=== PATIENT | female | born 1990 | race American Indian/Alaskan Native ===

== ENCOUNTER 2017-02-05 00:32 | Outpatient (CLI) | payer MEDICAID ==
[2017-02-05 00:54] VITALS: BP 121/65
--- NOTE | 2017-02-05 07:52 | Ultrasound Report ---
BIOPHYSICAL PROFILE: 2 - breathing movements 2 - movements 2 - posture and tone 2 - Qualitative amniotic fluid volume 8 - TOTAL SCORE OF POSSIBLE 8 Heart Rate (bpm) 135 Gestation: Single Heart Rate: 135 BPM
== END 2017-02-05 02:29 | disposition home or self-care (01) ==
LOC: TRG 00:32
PROVIDERS: ATTEND Obstetrics & Gynecology Gynecology
DX: O46.93 Antepartum hemorrhage, unspecified, third trimester (principal); O48.0 Post-term pregnancy; O47.1 False labor at or after 37 completed weeks of gestation; O26.893 Other specified pregnancy related conditions, third trimester; R10.30 Lower abdominal pain, unspecified; Z3A.40 40 weeks gestation of pregnancy
CPT/HCPCS: 59025; 76815; 76819

== ENCOUNTER 2017-02-08 07:28 | Inpatient (IN) | payer MEDICAID ==
[2017-02-08] MEDS ORDERED: STADOL IV PRN (08:34)
[2017-02-08] MEDS ORDERED: ZOFRAN IV PRN ×2 (09:02→17:34)
[2017-02-08] MEDS ORDERED: MINERAL OIL PO PRN (09:02)
[2017-02-08] MEDS ORDERED: ePHEDrine SULFATE IV PRN ×2 (09:02→12:09)
[2017-02-08] MEDS ORDERED: BRETHINE SUB-Q PRN (09:02)
[2017-02-08] MEDS ORDERED: XYLOCAINE 2% INFILTRATI ONE (09:02)
[2017-02-08] MEDS ORDERED: BRETHINE IVP PRN (09:02)
--- NOTE | 2017-02-08 09:02 | History and Physical Report ---
History of Present Illness Date of examination: 02/08/17 Chief complaint: Painful contractions History of present illness: 26-year-old at 40+5 weeks presents in active labor, she is a [facility] patient. care complicated by late presentation to care in the second trimester otherwise unremarkable. 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 denies: smoking, alcohol abuse, prescription drug abuse, IV drug use - Obstetrical History Expected Date of Delivery: 02/03/17 Actual Gestation: 40 Week(s) 5 Day(s) : 1 Para: 0 Medications and Allergies Allergies Allergy/AdvReac Type Severity Reaction Status Date / Time latex Allergy Hives Unverified 02/05/17 00:34 Active Meds: Active Medications Butorphanol Tartrate (Stadol) 2 mg IV Q2H PRN PRN Reason: Labor Pain Lactated Ringer's (Lactated Ringers) 1,000 mls @ 125 mls/hr IV DIRECT COLEEN Review of Systems Constitutional: no fever, no chills, no fatigue, no chronic headaches Cardiovascular: no chest pain, no orthopnea, no syncope, no lightheadedness, no shortness of breath, no dyspnea on exertion, no high blood pressure Respiratory: no hemoptysis, no shortness of breath, no dyspnea on exertion Gastrointestinal: abdominal pain (intermittent painful contractions), no nausea , no vomiting, no heartburn, no indigestion Genitourinary: no vaginal bleeding, no vaginal discharge, no leakage of fluid - Vital Signs Vital signs: Vital Signs Pulse BP 91 H 127/67 02/08/17 07:50 02/08/17 07:50 Temp Pulse Resp BP Pulse Ox 98.2 F 85 16 134/80 02/08/17 08:43 02/08/17 08:49 02/08/17 08:43 02/08/17 08:49 - Physical Exam Abdomen: Positive: normal appearance, soft. Negative: guarding Genitourinary (Female): Positive: normal external genitalia Uterus: Positive: enlarged (EFW ~ 3900). Negative: tender Extremities: Positive: normal - Obstetrical FHR: category 1 Cervical Dilatation: 4 (Per RN exam) Results All other labs normal. Assessment and Plan A: 26-year-old at 40+5 weeks presents in active labor -Category 1 tracing P: -Admit -Obtain routine labs -Epidural when necessary -Anticipate normal vaginal delivery - Patient Problems (1) 41 weeks gestation of Current Visit: Yes Status: Acute (2) Active labor at term Current Visit: Yes Status: Acute
[2017-02-08 09:10] LABS: Basophils % (Auto) 0.3 % (0.0-1.8); Eosinophils % (Auto) 0.8 % (0.0-4.3); Hemoglobin 13.5 gm/dl (10.1-14.3); Mean Corpuscular HGB Conc 33 % (30-34); Mean Corpuscular Hemoglobin 29 pg (28-32); Mean Corpuscular Volume 88 fl (79-97); Platelet Count 187 K/mm3 (140-440); Red Blood Count 4.66 M/mm3 (3.65-5.03); Red Cell Distribution Width 15.6 % (13.2-15.2); White Blood Count 10.6 K/mm3 (4.5-11.0)
[2017-02-08] MEDS ORDERED: PITOCin/NS 20 UNIT/1000ML DRIP 20 UNITS/1,000 ML BAG IV SCH ×2 (10:00→18:00)
[2017-02-08] MEDS ORDERED: LACTATED RINGERS 1,000 ML IV SCH (10:00)
[2017-02-08] MEDS ORDERED: PITOCin/NS 30 UNIT/500ML 30 UNITS/500 ML BAG IV SCH ×2 (10:00)
[2017-02-08 10:01] LABS: Hematocrit 41.9 % (30.3-42.9); Hemoglobin 13.9 gm/dl (10.1-14.3); Mean Corpuscular HGB Conc 33 % (30-34); Mean Corpuscular Hemoglobin 29 pg (28-32); Mean Corpuscular Volume 87 fl (79-97); Platelet Count 193 K/mm3 (140-440); Red Blood Count 4.81 M/mm3 (3.65-5.03); Red Cell Distribution Width 15.7 % (13.2-15.2)
[2017-02-08] MEDS: LACTATED RINGERS 1,000 ML IV SCH ×2 (10:35→18:33)
[2017-02-08] MEDS ORDERED: ePHEDrine SULFATE ONE (11:03)
[2017-02-08] MEDS ORDERED: NARCAN 2 MG/2 ML IV PRN (12:09)
--- NOTE | 2017-02-08 12:09 | Anesthesia Consultation ---
Anesthesia Consult and Med Hx Date of service: 02/08/17 - Airway Anesthetic Teeth Evaluation: Good ROM Head & Neck: Adequate Mental/Hyoid Distance: Adequate Mallampati Class: Class II Intubation Access Assessment: Good - Pulmonary Exam CTA: Yes - Cardiac Exam Cardiac Exam: No Murmur - Pre-Operative Health Status ASA Pre-Surgery Classification: ASA2 Proposed Anesthetic Plan: Epidural - Pulmonary Hx Asthma: No COPD: No Hx Pneumonia: No - Cardiovascular System Hx Hypertension: No - Central Nervous System Hx Seizures: No Hx Psychiatric Problems: No - Endocrine Hx Renal Disease: No Hx End Stage Renal Disease: No Hx Hypothyroidism: No Hx Hyperthyroidism: No - Hematic Hx Anemia: No Hx Sickle Cell Disease: No - Other Systems Hx Alcohol Use: No
[2017-02-08] MEDS: fentaNYL-BUPIV 2 MCG/ML-0.125% 200 MCG/100 ML BAG EPIDURAL SCH ×2 (12:46→20:34)
--- NOTE | 2017-02-08 14:31 | Progress Note ---
Assessment and Plan A: 26-year-old at 40+5 weeks presents in active labor -Category 1 tracing at this time P: -Will observe patient for an hour -If no cervical change, will consider proceeding to section. - Patient Problems (1) 41 weeks gestation of Current Visit: Yes Status: Acute (2) Active labor at term Current Visit: Yes Status: Acute Subjective - Subjective Date of service: 02/08/17 Interval history: Patient seen and examined, having latish decelerations when ever Pitocin is started. Pitocin has been discontinued. She is currently 6 cm Patient reports: new complaints, movement normal, contractions, no loss of fluid, no vaginal bleeding Objective - Vital Signs Vital Signs: Vital Signs - 12hr 02/08/17 02/08/17 02/08/17 07:50 08:43 08:49 Temperature 98.2 F Pulse Rate 91 H 85 Pulse Rate [ 91 H From Monitor] Respiratory 16 Rate Blood Pressure 127/67 134/80 Blood Pressure 127/67 [Left Arm] O2 Sat by Pulse Oximetry 02/08/17 02/08/17 02/08/17 09:20 10:04 10:09 Temperature Pulse Rate 108 H 95 H 100 H Pulse Rate [ From Monitor] Respiratory Rate Blood Pressure 115/72 127/61 Blood Pressure [Left Arm] O2 Sat by Pulse 99 99 Oximetry 02/08/17 02/08/17 02/08/17 10:30 11:45 11:49 Temperature 97.1 F L Pulse Rate 96 H 93 H Pulse Rate [ 96 H From Monitor] Respiratory 18 Rate Blood Pressure 118/62 Blood Pressure 118/62 [Left Arm] O2 Sat by Pulse 99 Oximetry 02/08/17 02/08/17 02/08/17 11:53 11:54 11:55 Temperature Pulse Rate 104 H 108 H 110 H Pulse Rate [ From Monitor] Respiratory Rate Blood Pressure 126/64 140/70 Blood Pressure [Left Arm] O2 Sat by Pulse 99 Oximetry 02/08/17 02/08/17 02/08/17 11:57 11:59 12:04 Temperature Pulse Rate 97 H 95 H 108 H Pulse Rate [ From Monitor] Respiratory Rate Blood Pressure 140/61 125/57 121/56 Blood Pressure [Left Arm] O2 Sat by Pulse 98 96 Oximetry 02/08/17 02/08/17 02/08/17 12:05 12:07 12:09 Temperature Pulse Rate 102 H 115 H 112 H Pulse Rate [ From Monitor] Respiratory Rate Blood Pressure 112/53 109/51 Blood Pressure [Left Arm] O2 Sat by Pulse 98 Oximetry 02/08/17 02/08/17 02/08/17 12:10 12:11 12:12 Temperature Pulse Rate 111 H 99 H 107 H Pulse Rate [ From Monitor] Respiratory Rate Blood Pressure 101/48 118/51 Blood Pressure [Left Arm] O2 Sat by Pulse 86 Oximetry 02/08/17 02/08/17 02/08/17 12:14 12:15 12:17 Temperature Pulse Rate 112 H 93 H 102 H Pulse Rate [ From Monitor] Respiratory Rate Blood Pressure 119/60 123/55 124/60 Blood Pressure [Left Arm] O2 Sat by Pulse 98 Oximetry 02/08/17 02/08/17 02/08/17 12:19 12:24 12:29 Temperature Pulse Rate 94 H 118 H 90 Pulse Rate [ From Monitor] Respiratory Rate Blood Pressure 120/56 Blood Pressure [Left Arm] O2 Sat by Pulse 98 98 98 Oximetry 02/08/17 02/08/17 02/08/17 12:31 12:34 12:39 Temperature Pulse Rate 96 H 96 H 89 Pulse Rate [ From Monitor] Respiratory Rate Blood Pressure 97/55 Blood Pressure [Left Arm] O2 Sat by Pulse 97 99 Oximetry 02/08/17 02/08/17 02/08/17 12:42 12:44 12:49 Temperature Pulse Rate 81 102 H 89 Pulse Rate [ From Monitor] Respiratory Rate Blood Pressure 123/58 Blood Pressure [Left Arm] O2 Sat by Pulse 99 98 Oximetry 02/08/17 02/08/17 02/08/17 12:51 12:54 12:59 Temperature Pulse Rate 85 89 88 Pulse Rate [ From Monitor] Respiratory Rate Blood Pressure 123/57 Blood Pressure [Left Arm] O2 Sat by Pulse 99 98 Oximetry 02/08/17 02/08/17 02/08/17 13:00 13:01 13:04 Temperature 97.7 F Pulse Rate 81 93 H Pulse Rate [ 81 From Monitor] Respiratory 18 Rate Blood Pressure 117/57 Blood Pressure 117/57 [Left Arm] O2 Sat by Pulse 98 Oximetry 02/08/17 02/08/17 02/08/17 13:09 13:14 13:19 Temperature Pulse Rate 82 85 87 Pulse Rate [ From Monitor] Respiratory Rate Blood Pressure Blood Pressure [Left Arm] O2 Sat by Pulse 98 99 98 Oximetry 02/08/17 02/08/17 02/08/17 13:24 13:29 13:30 Temperature Pulse Rate 89 86 77 Pulse Rate [ From Monitor] Respiratory Rate Blood Pressure 116/56 Blood Pressure [Left Arm] O2 Sat by Pulse 97 97 Oximetry 02/08/17 02/08/17 02/08/17 13:34 13:39 13:40 Temperature Pulse Rate 76 84 81 Pulse Rate [ From Monitor] Respiratory Rate Blood Pressure 108/54 Blood Pressure [Left Arm] O2 Sat by Pulse 98 99 Oximetry 02/08/17 02/08/17 02/08/17 13:44 13:49 13:51 Temperature Pulse Rate 73 74 79 Pulse Rate [ From Monitor] Respiratory Rate Blood Pressure 104/66 Blood Pressure [Left Arm] O2 Sat by Pulse 98 99 Oximetry 02/08/17 02/08/17 02/08/17 13:54 13:59 14:02 Temperature Pulse Rate 76 75 79 Pulse Rate [ From Monitor] Respiratory Rate Blood Pressure 99/51 Blood Pressure [Left Arm] O2 Sat by Pulse 98 95 Oximetry 02/08/17 02/08/17 02/08/17 14:04 14:09 14:11 Temperature Pulse Rate 77 94 H 82 Pulse Rate [ From Monitor] Respiratory Rate Blood Pressure 108/56 Blood Pressure [Left Arm] O2 Sat by Pulse 98 97 Oximetry 02/08/17 02/08/17 02/08/17 14:14 14:19 14:22 Temperature Pulse Rate 77 77 90 Pulse Rate [ From Monitor] Respiratory Rate Blood Pressure 114/53 Blood Pressure [Left Arm] O2 Sat by Pulse 94 100 Oximetry - Exam FHR: category 1 Cervical Dilatation: 6 - Labs Labs: Abnormal Labs 02/08/17 02/08/17 09:02 09:45 RDW 15.6 H 15.7 H Seg Neutrophils % 75.0 H Seg Neutrophils # 7.9 H Laboratory Results - last 24 hr 02/08/17 02/08/17 02/08/17 08:15 09:02 09:45 WBC 10.6 11.0 RBC 4.66 4.81 Hgb 13.5 13.9 Hct 41.0 41.9 MCV 88 87 MCH 29 29 MCHC 33 33 RDW 15.6 H 15.7 H Plt Count 187 193 Lymph % (Auto) 16.8 [place] % (Auto) 7.1 Eos % (Auto) 0.8 Baso % (Auto) 0.3 Lymph # 1.8 [place] # 0.8 Eos # 0.1 Baso # 0.0 Seg Neutrophils % 75.0 H Seg Neutrophils # 7.9 H Blood Type B POSITIVE Antibody Screen TNR RONY Antibody Screen Negative
[2017-02-08] MEDS ORDERED: REGLAN IV ONE (15:32)
[2017-02-08] MEDS ORDERED: BICITRA PO ONE (15:32)
[2017-02-08] MEDS ORDERED: PEPCID IV ONE (15:32)
--- NOTE | 2017-02-08 15:33 | Event Note ---
Date: 02/08/17 Patient with no cervical change in ~ 1 hour. Currently category 1 tracing. Discussed options with the patient and her family, discussed starting Pitocin or proceeding with primary . She wants to proceed with primary C- section. We then reviewed the risks of surgery including injury to the surrounding organs and tissues, risk of bleeding, infection. All her questions were answered and we'll proceed as soon as OR is available
[2017-02-08] MEDS ORDERED: ANCEF/NS 1 GM/50 ML 1 GM/50 ML BAG IV NR (16:00)
[2017-02-08] MEDS ORDERED: ANCEF/STERILE WATER 2 GM/20 ML 2 GM/20 ML SYRINGE IV NR (16:00)
[2017-02-08] MEDS ORDERED: MORPHINE ONE ×2 (16:14)
[2017-02-08] MEDS ORDERED: XYLOCAINE MPF 2% ONE ×4 (16:25)
[2017-02-08] MEDS ORDERED: TORADOL ONE (16:25)
[2017-02-08] MEDS ORDERED: VERSED ONE (17:09)
--- NOTE | 2017-02-08 17:25 | Operative Report ---
Operative Report Operative Report: DATE: 02/08/2017 PREOPERATIVE DIAGNOSIS: 26-year-old at 40+5 weeks, category 2 tracing, arrest of dilation, suspected macrosomia, maternal request, maternal obesity POSTOP DIAGNOSIS: As above NAME OF PROCEDURE: Primary low transverse section SURGEON: JOHN JOHANSEN MD SHORTAGE WORKER: [] ANESTHESIA: Epidural EBL: 1000 mL PATHOLOGY SPECIMEN: None URINE OUTPUT: 100 mL FINDINGS: Female in cephalic presentation, time of was 16:33, with significant thickening of the shoulders and cheeks resembling a diabetic profile, Apgars 9 and 9, infant weight was 8 lbs. 2 oz. or 3679 g, normal uterus and tubes bilaterally, substantial subcutaneous tissue DESCRIPTION OF PROCEDURE: After informed consent, patient was taken to the operating room where she was prepped and draped in a sterile fashion. Pfannestial incision was performed 2 cm above the pubic symphysis. This was then carried down to the underlying rectus fascia which was scored in the midline. The fascial incision was extended laterally with the use of Holley scissors, anterior leaf was then grasped with Britany's elevated dissected sharply and bluntly off the underlying rectus. In a similar fashion the inferior leaf was grasped elevated dissected sharply and bluntly off the underlying rectus. The rectus was in the midline and the peritoneal cavity was entered without difficulty. After good visualization of the bladder the peritoneal layer was extended up and down; bladder blade was placed in the patient's pelvic cavity, bladder flap was created without difficulty. A hysterotomy incision was then performed with clear amniotic fluid noted. in cephalic presentation was delivered without difficulty in the usual manner; cord was clamped cut and infant was handed over to waiting NICU staff. The placenta was then delivered intact, the uterus was then exteriorized cleared of all clots and debris. Her hysterotomy incision was then closed in a running locked fashion with 0 Vicryl on a CTX; using the same suture were able to imbricate the initial layer. The uterus was then returned to the patient's pelvic cavity; the peritoneal edges were grasped with hemostats and Jenniffer's; irrigation was used to clear the gutters of all clots and debris. Tisseel hemostatic agent was applied copiously over the hysterotomy incision. The bladder flap was then closed in a running fashion with 3-0 Vicryl. Interceed was placed in the patient's pelvic cavity as a means to prevent future adhesions. The peritoneal layer was closed in a running fashion with 0 Vicryl; the rectus was reapproximated with a single [id number] stitch. The fascia was then closed in a running fashion with 0 Vicryl; the subcutaneous layer was reapproximated with a single yxcthy-[id number] stitch. The skin was then closed in a subcuticular manner with 4-0 Monocryl. She tolerated the procedure well lap and instrument counts were correct 2, she did receive 3 grams of Ancef prior to the procedure. She is transferred to PACU in stable condition.
[2017-02-08] MEDS ORDERED: TUCKS PAD TP PRN (17:26)
[2017-02-08] MEDS ORDERED: TYLENOL PO PRN (17:26)
[2017-02-08] MEDS ORDERED: NARCAN 0.4 MG/1 ML IV PRN ×2 (17:26→17:34)
[2017-02-08] MEDS ORDERED: LANSINOH TP PRN (17:26)
[2017-02-08] MEDS ORDERED: NORCO 5/325 PO PRN (17:26)
[2017-02-08] MEDS ORDERED: TORADOL IV PRN (17:26)
[2017-02-08] MEDS ORDERED: MYLICON PO PRN (17:26)
[2017-02-08] MEDS ORDERED: SENOKOT PO PRN (17:26)
[2017-02-08] MEDS ORDERED: ANUCORT-HC PR PRN (17:26)
[2017-02-08] MEDS ORDERED: MILK OF MAGNESIA PO PRN (17:26)
[2017-02-08] MEDS ORDERED: PHENERGAN PO PRN (17:34)
[2017-02-08] MEDS ORDERED: PHENERGAN PR PRN (17:34)
[2017-02-08] MEDS ORDERED: DILAUDID IV PRN ×2 (17:34)
--- NOTE | 2017-02-08 17:34 | Post Anesthesia Evaluation ---
- Post Anesthesia Evaluation Patient Participated: Yes Airway Patent: Yes Stable Respiratory Function: Yes Nausea/Vomiting: No Temp > 96.8F: Yes Pain Manageable: Yes Adequeate Hydration: Yes Anesthesia Complications: No
[2017-02-08] MEDS ORDERED: SODIUM CHLORIDE FLUSH SYRINGE 10 ML IV NR ×2 (18:00)
[2017-02-08] MEDS ORDERED: D5LR 1,000 ML IV SCH (18:00)
[2017-02-08] MEDS ORDERED: fentaNYL-BUPIV 2 MCG/ML-0.125% 200 MCG/100 ML BAG EPIDURAL SCH (18:00)
[2017-02-08] MEDS ORDERED: WATER FOR IRRIG STERILE IR ONE (18:16)
[2017-02-08] MEDS ORDERED: NACL 0.9% IR ONE (18:16)
[2017-02-08] MEDS ORDERED: LACTATED RINGERS 500 ML IV ONE (18:20)
[2017-02-09 05:37] LABS: Hemoglobin 11.9 gm/dl (10.1-14.3)
[2017-02-09] MEDS ORDERED: BOOSTRIX IM ONE (06:00)
[2017-02-09] MEDS: PERCOCET 5/325 PO PRN ×3 (07:35→19:23)
[2017-02-09] MEDS: MOTRIN PO PRN ×3 (07:36→19:23)
[2017-02-09] MEDS ORDERED: FEOSOL PO SCH (10:00)
[2017-02-09] MEDS: PRENATAL VITAMIN PO SCH (10:13)
--- NOTE | 2017-02-09 10:33 | Progress Note ---
Assessment and Plan - Patient Problems (1) Status post primary low transverse section Onset Date: 02/09/17 Current Visit: Yes Status: Acute Plan to address problem: A: S/P C Section - POD #1 Doing well P: Continue RPOC Anticipate discharge in 24-48hrs Subjective - Subjective Date of service: 02/09/17 Principal diagnosis: s/p C Section - POD #1 Interval history: Pt is feeling well without complaints. Tolerating a liquid diet without nausea or vomiting, ambulating and voiding without difficulty. Patient reports: appetite normal, voiding normally, pain well controlled, flatus , ambulating normally [place]: doing well, nursing well Objective - Vital Signs Latest vital signs: Vital Signs Temp Pulse Pulse Pulse Resp BP BP 02/09/17 08:15 97.7 F 91 H 19 132/62 02/09/17 05:25 98.5 F 98 H 18 108/67 02/09/17 01:25 98.5 F 86 18 110/52 02/08/17 20:50 98.3 F 82 18 126/78 02/08/17 18:45 98.1 F 93 H 18 145/67 02/08/17 18:28 98.0 F 85 18 126/75 02/08/17 18:20 81 18 115/66 02/08/17 18:10 77 22 108/61 02/08/17 18:00 84 23 107/56 02/08/17 17:50 80 18 106/63 02/08/17 17:41 86 18 02/08/17 17:38 18 02/08/17 17:33 88 18 02/08/17 17:30 92 H 15 02/08/17 17:28 98.0 F 91 H 18 104/54 02/08/17 16:00 82 123/55 02/08/17 15:59 90 02/08/17 15:54 102 H 02/08/17 15:50 100 H 129/60 02/08/17 15:49 93 H 02/08/17 15:44 89 02/08/17 15:41 88 128/58 02/08/17 15:39 96 H 02/08/17 15:34 81 02/08/17 15:30 92 H 118/58 02/08/17 15:29 93 H 02/08/17 15:24 103 H 02/08/17 15:20 96 H 109/53 02/08/17 15:19 82 02/08/17 15:14 82 02/08/17 15:11 76 103/51 02/08/17 15:09 80 02/08/17 15:04 78 02/08/17 15:00 81 94/55 02/08/17 14:59 88 02/08/17 14:54 103 H 02/08/17 14:50 78 89/55 02/08/17 14:49 82 02/08/17 14:44 85 02/08/17 14:40 80 98/49 02/08/17 14:39 87 02/08/17 14:34 79 02/08/17 14:31 79 100/52 02/08/17 14:29 81 02/08/17 14:24 80 02/08/17 14:22 90 114/53 02/08/17 14:19 77 02/08/17 14:14 77 02/08/17 14:11 82 108/56 02/08/17 14:09 94 H 02/08/17 14:04 77 02/08/17 14:02 79 99/51 02/08/17 13:59 75 02/08/17 13:54 76 02/08/17 13:51 79 104/66 02/08/17 13:49 74 02/08/17 13:44 73 02/08/17 13:40 81 108/54 02/08/17 13:39 84 02/08/17 13:34 76 02/08/17 13:30 77 116/56 02/08/17 13:29 86 02/08/17 13:24 89 02/08/17 13:19 87 02/08/17 13:14 85 02/08/17 13:09 82 02/08/17 13:04 93 H 02/08/17 13:01 81 117/57 02/08/17 13:00 97.7 F 81 18 117/57 02/08/17 12:59 88 02/08/17 12:54 89 02/08/17 12:51 85 123/57 02/08/17 12:49 89 02/08/17 12:44 102 H 02/08/17 12:42 81 123/58 02/08/17 12:39 89 02/08/17 12:34 96 H 02/08/17 12:31 96 H 97/55 02/08/17 12:29 90 02/08/17 12:24 118 H 02/08/17 12:19 94 H 120/56 02/08/17 12:17 102 H 124/60 02/08/17 12:15 93 H 123/55 02/08/17 12:14 112 H 119/60 02/08/17 12:12 107 H 118/51 02/08/17 12:11 99 H 02/08/17 12:10 111 H 101/48 02/08/17 12:09 112 H 02/08/17 12:07 115 H 109/51 02/08/17 12:05 102 H 112/53 02/08/17 12:04 108 H 121/56 02/08/17 11:59 95 H 125/57 02/08/17 11:57 97 H 140/61 02/08/17 11:55 110 H 140/70 02/08/17 11:54 108 H 02/08/17 11:53 104 H 126/64 02/08/17 11:49 93 H 02/08/17 11:45 96 H 118/62 Pulse Ox 02/09/17 08:15 02/09/17 05:25 02/09/17 01:25 02/08/17 20:50 02/08/17 18:45 02/08/17 18:28 100 02/08/17 18:20 100 02/08/17 18:10 99 02/08/17 18:00 99 02/08/17 17:50 99 02/08/17 17:41 100 02/08/17 17:38 02/08/17 17:33 100 02/08/17 17:30 100 02/08/17 17:28 100 02/08/17 16:00 02/08/17 15:59 98 02/08/17 15:54 98 02/08/17 15:50 02/08/17 15:49 97 02/08/17 15:44 98 02/08/17 15:41 02/08/17 15:39 98 02/08/17 15:34 96 02/08/17 15:30 02/08/17 15:29 97 02/08/17 15:24 97 02/08/17 15:20 02/08/17 15:19 99 02/08/17 15:14 98 02/08/17 15:11 02/08/17 15:09 98 02/08/17 15:04 99 02/08/17 15:00 02/08/17 14:59 97 02/08/17 14:54 97 02/08/17 14:50 02/08/17 14:49 99 02/08/17 14:44 97 02/08/17 14:40 02/08/17 14:39 98 02/08/17 14:34 99 02/08/17 14:31 02/08/17 14:29 99 02/08/17 14:24 99 02/08/17 14:22 02/08/17 14:19 100 02/08/17 14:14 94 02/08/17 14:11 02/08/17 14:09 97 02/08/17 14:04 98 02/08/17 14:02 02/08/17 13:59 95 02/08/17 13:54 98 02/08/17 13:51 02/08/17 13:49 99 02/08/17 13:44 98 02/08/17 13:40 02/08/17 13:39 99 02/08/17 13:34 98 02/08/17 13:30 02/08/17 13:29 97 02/08/17 13:24 97 02/08/17 13:19 98 02/08/17 13:14 99 02/08/17 13:09 98 02/08/17 13:04 98 02/08/17 13:01 02/08/17 13:00 02/08/17 12:59 98 02/08/17 12:54 99 02/08/17 12:51 02/08/17 12:49 98 02/08/17 12:44 99 02/08/17 12:42 02/08/17 12:39 99 02/08/17 12:34 97 02/08/17 12:31 02/08/17 12:29 98 02/08/17 12:24 98 02/08/17 12:19 98 02/08/17 12:17 02/08/17 12:15 02/08/17 12:14 98 02/08/17 12:12 02/08/17 12:11 86 02/08/17 12:10 02/08/17 12:09 98 02/08/17 12:07 02/08/17 12:05 02/08/17 12:04 96 02/08/17 11:59 98 02/08/17 11:57 02/08/17 11:55 02/08/17 11:54 99 02/08/17 11:53 02/08/17 11:49 99 02/08/17 11:45 Intake and Output 02/08/17 02/09/17 02/09/17 22:59 06:59 14:59 Intake Total 4393.7 1230 Output Total 1150 1600 600 Balance 3243.7 -370 -600 Intake: IV 4033.7 750 ANCEF/STERILE WATER 2 GM/ 20 20 ML 2 gm In 20 ml @ 80 mls/hr IV PREOP NR Rx#: [id number] D5lr 1,000 ml @ 125 mls/ 250 750 hr IV DIRECT COLEEN Rx#: [id number] Lactated Ringers 1,000 ml 1000 @ 125 mls/hr IV DIRECT COLEEN Rx#:[id number] PITOCin/NS 20 UNIT/1000ML 125 DRIP 20 units In 1,000 ml @ 125 mls/hr IV DIRECT COLEEN Rx#:[id number] PITOCin/NS 20 UNIT/1000ML 600 DRIP 20 units In 1,000 ml @ 250 mls/hr IV DIRECT COLEEN Rx#:[id number] fentaNYL-BUPIV 2 MCG/ML-0 38.7 .125% 200 mcg In 100 ml @ 12 mls/hr EPIDURAL TITR COLEEN Rx#:[id number] Intake, Free Water 360 480 Output: Urine 1150 1600 600 Indwelling Catheter 950 1600 Uretheral ([place]) 50 Void 600 Other: Total, Output Amount 600 1600 600 - Exam Breasts: Present: deferred Cardiovascular: Present: Regular rate Lungs: Present: Clear to auscultation Abdomen: Present: normal appearance, soft Uterus: Present: normal, firm, fundal height below umbilicus Extremities: Present: normal Incision: Present: normal, dry, intact, dressed - Labs Labs: Laboratory Tests 02/08/17 02/08/17 02/08/17 08:15 09:02 09:45 WBC 10.6 11.0 RBC 4.66 4.81 Hgb 13.5 13.9 Hct 41.0 41.9 MCV 88 87 MCH 29 29 MCHC 33 33 RDW 15.6 H 15.7 H Plt Count 187 193 Lymph % (Auto) 16.8 [place] % (Auto) 7.1 Eos % (Auto) 0.8 Baso % (Auto) 0.3 Lymph # 1.8 [place] # 0.8 Eos # 0.1 Baso # 0.0 Seg Neutrophils % 75.0 H Seg Neutrophils # 7.9 H Blood Type B POSITIVE Antibody Screen TNR RONY Antibody Screen Negative 02/09/17 05:04 WBC RBC Hgb 11.9 Hct 35.0 D MCV MCH MCHC RDW Plt Count Lymph % (Auto) [place] % (Auto) Eos % (Auto) Baso % (Auto) Lymph # [place] # Eos # Baso # Seg Neutrophils % Seg Neutrophils # Blood Type Antibody Screen RONY Antibody Screen
[2017-02-10] MEDS: MOTRIN PO PRN ×2 (06:00→12:20)
[2017-02-10] MEDS: PERCOCET 5/325 PO PRN ×2 (06:00→12:21)
--- NOTE | 2017-02-10 10:40 | Progress Note ---
Assessment and Plan - Patient Problems (1) Status post primary low transverse section Onset Date: 02/09/17 Current Visit: Yes Status: Acute Plan to address problem: A: S/P C Section - POD #2 Doing well P: May go home today Subjective - Subjective Date of service: 02/10/17 Principal diagnosis: s/p C Section - POD #2 Interval history: Pt is feeling well without complaints. Tolerating a reg diet without nausea or vomiting, ambulating and voiding without difficulty. Ready to go home. Patient reports: appetite normal, voiding normally, pain well controlled, flatus , ambulating normally : doing well, nursing well Objective - Vital Signs Latest vital signs: Vital Signs Temp Pulse Resp BP 02/10/17 08:20 97.7 F 101 H 17 122/56 02/10/17 00:00 98.6 F 88 18 139/65 02/09/17 16:10 98.4 F 111 H 18 134/69 02/09/17 12:30 98.5 F 101 H 18 120/62 Intake and Output 02/09/17 02/10/17 02/10/17 22:59 06:59 14:59 Intake Total 240 550 Balance 240 550 Intake: Oral 240 250 Intake, Free Water 300 Other: Total, Intake Amount 240 250 # Voids Indwelling Catheter 1 - Exam Breasts: Present: deferred Cardiovascular: Present: Regular rate Lungs: Present: Clear to auscultation Abdomen: Present: normal appearance, soft Uterus: Present: normal, firm, fundal height below umbilicus Extremities: Present: normal Incision: Present: normal, dry, intact
--- NOTE | 2017-02-10 10:42 | Discharge Summary ---
Providers - Providers Date of Admission: 02/08/17 09:31 Date of discharge: 02/10/17 Attending physician: JOHN JOHANSEN Primary care physician: JOHN JOHANSEN Hospitalization Reason for admission: active labor, IUP at term Delivery: Procedure: section, primary low transverse Episiotomy: none Incision: normal, dry, intact Other procedures: none complications: none Discharge diagnosis: IUP at term delivered baby: female Hospital course: Pt is a 26-year-old BF at 40+5 weeks presented to L&D in active labor, but failed to progress, and thus was delivered by C Section. Pt tolerated the procedure well, and post operative course was unremarkable. By POD #2 she was tolerating a reg diet without nausea or vomiting, ambulating and voiding without difficulty, and therefore was discharged to home on POD #2 in stable condition. Condition at discharge: Good Disposition: DC-01 TO HOME OR SELFCARE - Discharge Diagnoses (1) Status post primary low transverse section Status: Resolved Plan - Discharge Medications Prescriptions: Ibuprofen [Motrin 600 MG tab] 600 mg PO Q8H PRN #30 tablet PRN Reason: Pain Multivitamin with Iron [Multivitamins with Iron] 1 each PO DAILY #30 tablet oxyCODONE /ACETAMINOPHEN [Percocet 5/325] 1 tab PO Q6HR PRN #30 tablet PRN Reason: Pain - Provider Discharge Summary Activity: routine, no sex for 6 weeks, no heavy lifting 4 weeks, no strenuous exercise Diet: routine Instructions: routine Additional instructions: [] Smoking cessation referral if applicable(refer to patient education folder for contact #) [] Refer to [facility] Booklet Call your doctor immediately for: * Fever > 100.5 * Heavy vaginal bleeding ( >1 pad per hour) * Severe persistent headache * Shortness of breath * Reddened, hot, painful area to leg or breast * Drainage or odor from incision. * Keep incision clean and dry at all times and follow doctor's instructions regarding bathing/showering - Follow up plan Follow up: JOHN JOHANSEN MD [Primary Care Provider] - 14 Days
[2017-02-10] MEDS: PRENATAL VITAMIN PO SCH (12:20)
[2017-02-10 13:23] VITALS: BP 84/70
== END 2017-02-10 13:45 | disposition home or self-care (01) | DRG 765 ==
LOC: TRG 07:28 → LD 09:31 → OB 18:49
PROVIDERS: ADMIT Obstetrics & Gynecology Gynecology; ATTEND Obstetrics & Gynecology Gynecology
PROC: 10D00Z1 Extraction of Products of Conception, Low, Open Approach (ICD-10-PCS; principal; 2017-02-08)
DX: O36.63X0 Maternal care for excessive fetal growth, third trimester, not applicable or unspecified (principal); Z68.41 Body mass index [BMI] 40.0-44.9, adult; Z3A.40 40 weeks gestation of pregnancy; Z37.0 Single live birth; Z91.040 Latex allergy status; O99.214 Obesity complicating childbirth; E66.9 Obesity, unspecified; O62.1 Secondary uterine inertia
CPT/HCPCS: 36415; 85014; 85018; 85025; 85027; 86850; 86900; 86901; 90471; 90715; 99211; A6250; C1765; C9250; G0463; J0690; J1170; J1885; J2250; J2270; J2590; J2765; J7120; J7121